=== PATIENT | female | born 1955 | race Caucasian/White ===

== ENCOUNTER 2021-06-22 14:37 | Inpatient (IN) ==
[2021-06-22 15:20] LABS: Bilirubin,Urine Negative (Negative); Blood,Urine Small (Negative); Clarity,Urine Clear (Clear); Color,Urine Yellow (Yellow); Glucose,Urine (UA) Normal (Normal); Hyaline Casts,Urine Few per lpf (None Seen); Ketones,Urine Trace mg/dL (Negative); Leukocyte Esterase,Urine Negative (Negative); Mucus,Urine Few per lpf (None-Few); Nitrite,Urine Negative (Negative); Protein,Urine 50 mg/dL (Neg-Trace); Specific Gravity,Urine 1.026 (1.010-1.025); Squamous Epithelial Cell,Urine Few per hpf (None-Few); Urobilinogen,Urine Normal (Normal); WBC,Urine 0-3 per hpf (0-3)
[2021-06-22 15:23] LABS: Basophils # 0.1 K/mcL (0.0-0.2); Basophils % 0.5 %; Eosinophils % 0.1 %; Hematocrit 39.9 % (35.3-44.9); Hemoglobin 13.5 g/dL (11.5-15.4); Immature Granulocytes % 0.3 % (0-4); Lymphocytes # 0.8 K/mcL (0.6-4.6); Lymphocytes % 8.1 %; Mean Corpuscular HGB Conc 33.8 g/dL (31.6-35.5); Mean Corpuscular Hemoglobin 31.5 pg (28.0-33.3); Mean Corpuscular Volume 93.2 fL (83.0-100.0); Mean Platelet Volume 8.8 fL (9.4-12.4); Monocytes # 0.7 K/mcL (0.0-1.3); Monocytes % 7.2 %; Neutrophils # 8.5 K/mcL (1.6-8.9); Platelet Count 286 K/mcL (140-400); Red Blood Count 4.28 M/mcL (3.82-4.97); Red Cell Distribution Width 12.9 % (11.5-14.5); Segmented Neutrophils % 83.8 %; White Blood Count 10.1 K/mcL (4.3-11.1)
[2021-06-22 15:34] LABS: Amphetamine Screen,Urine Negative ng/mL (Cutoff=1000); Barbiturate Screen,Urine Negative ng/mL (Cutoff=200); Benzodiazepines Screen,Urine Negative ng/mL (Cutoff=200); Cannabinoid Screen,Urine Negative ng/mL (Cutoff = 50); Cocaine Screen,Urine Negative ng/mL (Cutoff= 300); Opiate Screen,Urine Negative ng/mL (Cutoff=300); Phencyclidine Screen,Urine Negative ng/mL (Cutoff=25)
[2021-06-22 15:42] LABS: Acetaminophen < 10 mcg/mL (10-20); BUN/Creatinine Ratio 22 (6-26); Blood Urea Nitrogen 18 mg/dL (8-23); Calcium 9.5 mg/dL (8.6-10.3); Carbon Dioxide 24 mEq/L (23-29); Chloride 102 mEq/L (98-107); Chol/HDL Ratio 3.4 (0-4.9); Cholesterol 209 mg/dL (< 200); Ethanol < 10 mg/dL (Less than 10); Glucose 108 mg/dL (70-105); HDL Cholesterol 61 mg/dL (40-59); LDL Cholesterol,Calculated 133 mg/dL (< 100); Osmolality,Calculated 286 (280-300); Potassium 3.7 mEq/L (3.5-5.1); Salicylate < 2.5 mg/dL (15.0-30.0); Sodium 137 mEq/L (136-145); Triglycerides 76 mg/dL (< 150); eGFR For African Americans > 60 (> 60); eGFR For Non-African Americans > 60 (> 60)
[2021-06-22 17:37] LABS: Estimated Average Glucose 126 mg/dl
[2021-06-22 20:28] LABS: Influenza A PCR Negative (Negative); Influenza B PCR Negative (Negative); Resp. Syncytial Virus PCR Negative (Negative)
[2021-06-22 20:31] LABS: SARS-CoV-2 by PCR (In House) Negative (Negative)
[2021-06-22] MEDS ORDERED: Acetaminophen 325 MG TABLET PO PRN (20:58)
[2021-06-22] MEDS: traZODone 50 MG TABLET PO PRN (22:25)
[2021-06-22] MEDS: risperiDONE 1 MG TABLET PO SCH (22:25)
[2021-06-22] MEDS: *HR* LORazepam 2 MG/ML VIAL IM PRN (22:50)
[2021-06-22] MEDS: Haloperidol Lactate 5 MG/ML VIAL IM PRN (22:50)
[2021-06-23] MEDS ORDERED: Mag Hydrox/Al Hydrox/Simeth 30 ML UDC PO PRN (09:47)
[2021-06-23] MEDS ORDERED: MOM Conc 10 ML UD.LIQ PO PRN (09:47)
[2021-06-23] MEDS: risperiDONE 1 MG TABLET PO SCH (20:51)
[2021-06-24] MEDS: Doxycycline 100 MG CAPSULE PO SCH ×2 (11:22→20:27)
[2021-06-24] MEDS: traZODone 50 MG TABLET PO PRN (20:27)
[2021-06-24] MEDS: hydrOXYzine pamoate 25 MG CAPSULE PO PRN (20:27)
[2021-06-24] MEDS: risperiDONE 1 MG TABLET PO SCH (20:28)
[2021-06-24] MEDS: *HR* LORazepam 1 MG TABLET PO PRN (21:37)
[2021-06-24] MEDS: haloperidoL 5 MG TABLET PO PRN (21:37)
[2021-06-25] MEDS: Doxycycline 100 MG CAPSULE PO SCH ×2 (09:31→20:44)
[2021-06-25] MEDS: risperiDONE 1 MG TABLET PO SCH ×2 (14:37→20:44)
[2021-06-25] MEDS: hydrOXYzine pamoate 25 MG CAPSULE PO PRN (20:44)
[2021-06-25] MEDS: Ibuprofen 400 MG TABLET PO PRN (20:44)
[2021-06-26] MEDS: risperiDONE 1 MG TABLET PO SCH ×2 (08:57→21:00)
[2021-06-26] MEDS: Doxycycline 100 MG CAPSULE PO SCH ×2 (08:57→21:00)
[2021-06-26 12:33] LABS: Albumin 4.4 g/dL (3.5-5.7); Albumin/Globulin Ratio 1.8 (1.1-2.2); Bilirubin,Direct 0.1 mg/dL (0.0-0.2); Bilirubin,Indirect 0.2 mg/dL (0.0-1.0); Bilirubin,Total 0.3 mg/dL (0.3-1.0); Globulin 2.5 g/dL (2.4-3.5); Total Protein 6.9 g/dL (6.4-8.9)
[2021-06-26 12:35] LABS: Thyroid Stimulating Hormone 2.211 mcIU/mL (0.340-5.600)
[2021-06-26] MEDS: Ibuprofen 400 MG TABLET PO PRN (21:49)
[2021-06-27] MEDS: risperiDONE 1 MG TABLET PO SCH ×2 (10:03→21:11)
[2021-06-27] MEDS: Doxycycline 100 MG CAPSULE PO SCH ×2 (10:03→21:11)
[2021-06-28] MEDS: Haloperidol Lactate 5 MG/ML VIAL IM PRN (00:07)
[2021-06-28] MEDS: *HR* LORazepam 2 MG/ML VIAL IM PRN (00:07)
[2021-06-28] MEDS: hydrOXYzine pamoate 25 MG CAPSULE PO PRN ×2 (04:03→20:07)
[2021-06-28] MEDS: Ibuprofen 400 MG TABLET PO PRN ×2 (04:04→20:06)
[2021-06-28] MEDS: haloperidoL 5 MG TABLET PO PRN (06:36)
[2021-06-28] MEDS: *HR* LORazepam 1 MG TABLET PO PRN (06:36)
[2021-06-28] MEDS: Doxycycline 100 MG CAPSULE PO SCH ×2 (10:49→20:06)
[2021-06-28] MEDS: risperiDONE 1 MG TABLET PO SCH ×2 (10:49→20:06)
[2021-06-28] MEDS: traZODone 50 MG TABLET PO PRN ×2 (20:07→21:04)
[2021-06-28] MEDS ORDERED: Divalproex (24 HR) 250 MG TABLET PO SCH (21:00)
[2021-06-29] MEDS: Doxycycline 100 MG CAPSULE PO SCH ×2 (09:07→20:35)
[2021-06-29] MEDS: risperiDONE 1 MG TABLET PO SCH ×2 (09:07→20:34)
[2021-06-29] MEDS: traZODone 50 MG TABLET PO PRN (20:35)
[2021-06-29] MEDS: Divalproex (24 HR) 250 MG TABLET PO SCH (20:35)
[2021-06-30] MEDS: risperiDONE 1 MG TABLET PO SCH (08:32)
[2021-06-30] MEDS: Doxycycline 100 MG CAPSULE PO SCH (08:32)
[2021-06-30] MEDS: Divalproex (24 HR) 250 MG TABLET PO SCH (08:32)
[2021-06-30 08:52] VITALS: BP 114/74; PULSE 75; TEMP 99.9; O2SAT 99
== END 2021-06-30 12:25 | disposition home or self-care (01) | DRG 753 ==
LOC: EMEROOARM 14:37 → 1ANU 20:47
PROVIDERS: ADMIT Psychiatry & Neurology Psychiatry; ATTEND Psychiatry & Neurology Psychiatry

== ENCOUNTER 2022-02-26 19:29 | Inpatient (IN) ==
[2022-02-26] MEDS ORDERED: *HR* LORazepam 2 MG/ML VIAL IM ONE (20:44)
[2022-02-26 20:47] LABS: Bacteria,Urine Few per hpf (None-Few); Basophils # 0.1 K/mcL (0.0-0.2); Basophils % 0.6 %; Bilirubin,Urine Negative (Negative); Blood,Urine Small (Negative); Clarity,Urine Clear (Clear); Color,Urine Yellow (Yellow); Eosinophils % 0.4 %; Glucose,Urine (UA) Normal (Normal); Hematocrit 42.3 % (35.3-44.9); Hemoglobin 13.9 g/dL (11.5-15.4); Immature Granulocytes % 0.2 % (0-4); Ketones,Urine 10 mg/dL (Negative); Leukocyte Esterase,Urine Moderate (Negative); Lymphocytes # 1.2 K/mcL (0.6-4.6); Lymphocytes % 14.6 %; Mean Corpuscular HGB Conc 32.9 g/dL (31.6-35.5); Mean Corpuscular Hemoglobin 30.6 pg (28.0-33.3); Mean Corpuscular Volume 93.2 fL (83.0-100.0); Mean Platelet Volume 10.4 fL (9.4-12.4); Monocytes # 0.5 K/mcL (0.0-1.3); Monocytes % 6.4 %; Mucus,Urine Few per lpf (None-Few); Neutrophils # 6.5 K/mcL (1.6-8.9); Nitrite,Urine Positive (Negative); Platelet Count 227 K/mcL (140-400); Protein,Urine 30 mg/dL (Neg-Trace); Red Blood Count 4.54 M/mcL (3.82-4.97); Red Cell Distribution Width 12.8 % (11.5-14.5); Segmented Neutrophils % 77.8 %; Specific Gravity,Urine 1.029 (1.010-1.025); Squamous Epithelial Cell,Urine Few per hpf (None-Few); Urobilinogen,Urine Normal (Normal); WBC,Urine 30-50 per hpf (0-3); White Blood Count 8.3 K/mcL (4.3-11.1)
[2022-02-26 20:51] LABS: Estimated Average Glucose 128 mg/dl; Hemoglobin A1C 6.1 %
[2022-02-26 20:55] LABS: Amphetamine Screen,Urine Negative ng/mL (Cutoff=1000); Barbiturate Screen,Urine Negative ng/mL (Cutoff=200); Benzodiazepines Screen,Urine Negative ng/mL (Cutoff=200); Cannabinoid Screen,Urine Negative ng/mL (Cutoff = 50); Cocaine Screen,Urine Negative ng/mL (Cutoff= 300); Opiate Screen,Urine Negative ng/mL (Cutoff=300); Phencyclidine Screen,Urine Negative ng/mL (Cutoff=25)
[2022-02-26] MEDS ORDERED: risperiDONE 1 MG TABLET PO ONE (20:59)
[2022-02-26] MEDS ORDERED: QUEtiapine Fumarate 100 MG TABLET PO STA (21:00)
[2022-02-26] MEDS ORDERED: cephALEXin 500 MG CAPSULE PO ONE (21:01)
[2022-02-26 21:05] LABS: Acetaminophen < 10 mcg/mL (10-20); BUN/Creatinine Ratio 20 (6-26); Blood Urea Nitrogen 13 mg/dL (8-23); Calcium 9.5 mg/dL (8.6-10.3); Carbon Dioxide 23 mEq/L (23-29); Chloride 104 mEq/L (98-107); Chol/HDL Ratio 3.5 (0-4.9); Cholesterol 186 mg/dL (< 200); Ethanol < 10 mg/dL (Less than 10); Glucose 118 mg/dL (70-105); HDL Cholesterol 53 mg/dL (40-59); LDL Cholesterol,Calculated 111 mg/dL (< 100); Osmolality,Calculated 283 (280-300); Potassium 4.1 mEq/L (3.5-5.1); Salicylate < 2.5 mg/dL (15.0-30.0); Sodium 136 mEq/L (136-145); Triglycerides 110 mg/dL (< 150); eGFR For African Americans > 60 (> 60); eGFR For Non-African Americans > 60 (> 60)
[2022-02-27 00:57] LABS: Influenza A PCR Negative (Negative); Influenza B PCR Negative (Negative); Resp. Syncytial Virus PCR Negative (Negative)
[2022-02-27 00:59] LABS: SARS-CoV-2 by PCR (In House) Negative (Negative)
[2022-02-27] MEDS ORDERED: *HR* LORazepam 2 MG/ML VIAL IM PRN (01:59)
[2022-02-27] MEDS ORDERED: QUEtiapine Fumarate 25 MG TABLET PO PRN (01:59)
[2022-02-27] MEDS ORDERED: Haloperidol Lactate 5 MG/ML VIAL IM PRN (01:59)
[2022-02-27] MEDS ORDERED: Acetaminophen 325 MG TABLET PO PRN (01:59)
[2022-02-27] MEDS ORDERED: *HR* LORazepam 1 MG TABLET PO PRN (01:59)
[2022-02-27] MEDS ORDERED: haloperidoL 5 MG TABLET PO PRN (01:59)
[2022-02-27] MEDS: Nitrofurantoin (BID) 100 MG CAPSULE PO SCH (18:19)
[2022-02-27] MEDS: QUEtiapine Fumarate 100 MG TABLET PO SCH (21:05)
[2022-02-27] MEDS: Mirtazapine 15 MG TABLET PO SCH (21:06)
[2022-02-28] MEDS: Nitrofurantoin (BID) 100 MG CAPSULE PO SCH ×2 (11:15→17:17)
[2022-02-28] MEDS: Mirtazapine 15 MG TABLET PO SCH (21:05)
[2022-02-28] MEDS: QUEtiapine Fumarate 100 MG TABLET PO SCH (21:05)
[2022-03-01] MEDS: Nitrofurantoin (BID) 100 MG CAPSULE PO SCH ×2 (09:23→16:18)
[2022-03-01] MEDS: QUEtiapine Fumarate 100 MG TABLET PO SCH (20:17)
[2022-03-01] MEDS: hydrOXYzine pamoate 25 MG CAPSULE PO PRN (20:17)
[2022-03-01] MEDS: Mirtazapine 15 MG TABLET PO SCH (20:17)
[2022-03-02] MEDS: Nitrofurantoin (BID) 100 MG CAPSULE PO SCH ×2 (09:14→16:51)
[2022-03-02] MEDS: hydrOXYzine pamoate 25 MG CAPSULE PO PRN (22:06)
[2022-03-02] MEDS: QUEtiapine Fumarate 100 MG TABLET PO SCH (22:06)
[2022-03-02] MEDS: Mirtazapine 15 MG TABLET PO SCH (22:06)
[2022-03-03] MEDS: Nitrofurantoin (BID) 100 MG CAPSULE PO SCH ×2 (09:05→16:35)
[2022-03-03] MEDS ORDERED: Psyllium 1 PACKET POWD.PACK PO PRN (10:30)
[2022-03-03] MEDS: hydrOXYzine pamoate 25 MG CAPSULE PO PRN (21:01)
[2022-03-03] MEDS: QUEtiapine Fumarate 100 MG TABLET PO SCH (21:01)
[2022-03-03] MEDS: Mirtazapine 15 MG TABLET PO SCH (21:02)
[2022-03-04] MEDS: Nitrofurantoin (BID) 100 MG CAPSULE PO SCH (10:20)
[2022-03-04 18:12] LABS: Bilirubin,Urine Negative (Negative); Blood,Urine Trace (Negative); Calcium Oxalate Crystals,Urine Present per hpf; Clarity,Urine Clear (Clear); Color,Urine Yellow (Yellow); Glucose,Urine (UA) Normal (Normal); Ketones,Urine Negative (Negative); Leukocyte Esterase,Urine Small (Negative); Mucus,Urine Moderate per lpf (None-Few); Nitrite,Urine Negative (Negative); PH,Urine 5.5 pH Units (5.0-8.0); Protein,Urine Trace mg/dL (Neg-Trace); RBC,Urine 0-3 per hpf (0-3); Specific Gravity,Urine 1.028 (1.010-1.025); Squamous Epithelial Cell,Urine Few per hpf (None-Few); Urobilinogen,Urine Normal (Normal)
[2022-03-04] MEDS: QUEtiapine Fumarate 100 MG TABLET PO SCH (21:01)
[2022-03-04] MEDS: Mirtazapine 15 MG TABLET PO SCH (21:01)
[2022-03-05] MEDS: COAL TAR TP SCH (15:37)
[2022-03-05] MEDS: QUEtiapine Fumarate 100 MG TABLET PO SCH (21:11)
[2022-03-05] MEDS: Mirtazapine 15 MG TABLET PO SCH (21:11)
[2022-03-06] MEDS: hydrOXYzine pamoate 25 MG CAPSULE PO PRN ×2 (00:13→21:49)
[2022-03-06] MEDS: QUEtiapine Fumarate 100 MG TABLET PO SCH (21:49)
[2022-03-06] MEDS: Mirtazapine 15 MG TABLET PO SCH (21:49)
[2022-03-07] MEDS: OLANZapine 5 MG TAB.RAPDIS PO SCH (17:27)
[2022-03-07] MEDS: Mirtazapine 15 MG TABLET PO SCH (20:19)
[2022-03-07] MEDS: hydrOXYzine pamoate 25 MG CAPSULE PO PRN (20:19)
[2022-03-07] MEDS: QUEtiapine Fumarate 100 MG TABLET PO SCH (20:19)
[2022-03-08] MEDS: OLANZapine 5 MG TAB.RAPDIS PO SCH (17:52)
[2022-03-08] MEDS: Mirtazapine 15 MG TABLET PO SCH (20:33)
[2022-03-08] MEDS: QUEtiapine Fumarate 100 MG TABLET PO SCH (20:33)
[2022-03-08] MEDS: hydrOXYzine pamoate 25 MG CAPSULE PO PRN (20:33)
[2022-03-09] MEDS: COAL TAR TP SCH (09:07)
[2022-03-09] MEDS: OLANZapine 5 MG TAB.RAPDIS PO SCH (17:01)
[2022-03-09] MEDS: QUEtiapine Fumarate 100 MG TABLET PO SCH (21:04)
[2022-03-09] MEDS: Mirtazapine 15 MG TABLET PO SCH (21:04)
[2022-03-09] MEDS: hydrOXYzine pamoate 25 MG CAPSULE PO PRN (21:06)
[2022-03-10 08:08] VITALS: BP 124/81; PULSE 76; TEMP 96.4; O2SAT 97
== END 2022-03-10 14:20 | disposition home or self-care (01) | DRG 753 ==
LOC: EMEROOARM 19:29 → 1ANU 02-27 01:52 → SUATTDRO 02-27 01:52 → 1ANU 02-27 02:38
PROVIDERS: ADMIT Psychiatry & Neurology Neurology; ATTEND Psychiatry & Neurology Forensic Psychiatry